=== PATIENT | female | born 1995 | race Caucasian/White ===

== ENCOUNTER 2018-05-25 07:15 | Inpatient (IN) | payer OTHER ==
[2018-05-25 08:50] VITALS: BMI 30.6
[2018-05-25 09:09] LABS: BASO % 0.4 % (0-2.0); EOS % 2.8 % (0-4.5); HEMOGLOBIN 13.5 GM/dL (10.7-15.3); LYMPH % 24.1 % (8-40); MCH 32.3 pg (25.7-33.7); MCHC 33.8 g/dl (32.0-36.0); MEAN CELL VOLUME 95.6 fl (80-96); MEAN PLT VOLUME 8.1 fl (7.5-11.1); NEUT % 66.7 % (42.8-82.8); PLATELET COUNT 266 K/MM3 (134-434); RBC 4.18 M/mm3 (3.60-5.2); RDW 13.8 % (11.6-15.6); WHITE BLOOD COUNT 9.9 K/mm3 (4.0-10.0)
[2018-05-25 09:29] LABS: INR 0.85 (0.83-1.09)
[2018-05-25 09:32] LABS: ACTIVATED PTT 30.7 SECONDS (25.2-36.5)
[2018-05-25 09:39] LABS: ANION GAP 4 MMOL/L (8-16); BLOOD UREA NITROGEN 9 mg/dL (7-18); CALCIUM 9.1 mg/dL (8.5-10.1); CHLORIDE 107 mmol/L (98-107); CO2 24 mmol/L (21-32); CREATININE 0.5 mg/dL (0.55-1.3); GLUCOSE,RANDOM 73 mg/dL (74-106); POTASSIUM 3.9 mmol/L (3.5-5.1); SODIUM 135 mmol/L (136-145)
[2018-05-25] MEDS ORDERED: AMPICILLIN - 2 GM in SODIUM CHLORIDE 100 ML IVPB ONE (10:00)
[2018-05-25] MEDS ORDERED: AMPICILLIN SODIUM 2 GM VIAL ONE (10:00)
[2018-05-25] MEDS: DEXTROSE 5%-LACTATED RINGERS 1,000 ML IV SCH ×2 (12:00→18:30)
[2018-05-25] MEDS ORDERED: BUTORPHANOL TARTRATE 1 MG/ML VIAL IVPUSH PRN (12:13)
[2018-05-25] MEDS ORDERED: PROMETHAZINE HCL 25 MG/1 ML VIAL IVPB ONE (12:13)
--- NOTE | 2018-05-25 12:22 | HP ---
Past Medical History - Primary Care Physician PCP:: Bryan Morgan - Admission Chief Complaint: 38.6 weeks. PROM History of Present Illness: 22 yo f edc by sono 06/02/18 ,c/o leakage of fluid since 330 am today, clear , has irregular contraction, cx 1 cm 70 vx =3 mr, nitrazine positive, fhr cat 1, irregular contraction, pain scale 3 History Source: Patient Limitations to Obtaining History: No Limitations - Past Medical History ...: 2 ...Para: 0 ...Term: 0 ...: 0 ...Spon : 0 ...Induced : 1 ...Multiple Gestation: 0 ...LMP: 08/26/17 ... Weeks Gestation by Dates: 38.6 ...EDC by Dates: 06/02/18 ...EDC by Sono: 06/02/18 Infectious Disease: Yes: Other (positve GBS in urine) - Past Surgical History Hx Myomectomy: No Hx Transabdominal Cerclage: No - Smoking History Smoking history: Never smoked Have you smoked in the past 12 months: No - Alcohol/Substance Use Hx Alcohol Use: No - Social History History of Recent Travel: No Home Medications - Allergies Allergies/Adverse Reactions: Allergies Allergy/AdvReac Type Severity Reaction Status Date / Time latex Allergy Severe Rash Verified 05/25/18 08:22 lubricant Allergy Severe Rash Uncoded 05/25/18 08:23 - Home Medications Home Medications: Ambulatory Orders Ferrous Sulfate [Feosol] 325 mg PO BID 05/25/18 Vits96/Iron Fum/Folic [ Tablet] 1 each PO DAILY 05/25/18 Review of Systems - Review of Systems Constitutional: reports: No Symptoms Eyes: reports: No Symptoms HENT: reports: No Symptoms Neck: reports: No Symptoms Cardiovascular: reports: No Symptoms Respiratory: reports: No Symptoms Gastrointestinal: reports: No Symptoms Genitourinary: reports: No Symptoms Breasts: reports: No Symptoms Reported Musculoskeletal: reports: No Symptoms Integumentary: reports: No Symptoms Neurological: reports: No Symptoms Endocrine: reports: No Symptoms Hematology/Lymphatic: reports: No Symptoms Psychiatric: reports: No Symptoms Physical Exam - Maternity Vital Signs: Vital Signs Temperature 98.1 F 05/25/18 11:00 Pulse Rate 76 05/25/18 11:00 Respiratory Rate 20 05/25/18 11:00 Blood Pressure 119/70 05/25/18 11:00 O2 Sat by Pulse Oximetry (%) Constitutional: Yes: Well Nourished, No Distress, Calm Eyes: Yes: WNL, Conjunctiva Clear, EOM Intact HENT: Yes: WNL, Atraumatic, Normocephalic Neck: Yes: WNL, Supple, Trachea Midline Cardiovascular: Yes: WNL, Regular Rate and Rhythm Breast(s): Yes: WNL - Abdominal Exam/OB Fundal Height: 38 Number of Fetuses: Single Presentation: Vertex Contractions: Yes Regularity: Irregular Intensity: Mild/Mod Monitor Mode: External Heart Rate Location: [facility] Category: I Accelerations: Uniform Decelerations: None - Vaginal Exam/OB Vaginal Bleediing: No Speculum Exam: Yes Dilatation (cm): 1 cm Effacement (%): 70 Amniotic Membrane Status: Ruptured Nitrazine Test: Positive Amniotic Fluid: Yes: Clear Presentation: Vertex/Position Station: -3 - Physical Exam Musculoskeletal: Yes: WNL Extremities: Yes: WNL Edema: LLE: Trace, RLE: Trace Deep Tendon Reflex Grade: Normal +2 Psychiatric: Yes: WNL - Labs Lab Results: CBC, BMP 05/25/18 08:40 05/25/18 08:40 Hemorrhage Risk Assessment - Risk Factors Medium Risk Factors: Yes: None High Risk Factors: Yes: None Risk Score: 1 Risk Level: Medium Risk Problem List - Problems (1) with 38 completed weeks gestation Code(s): Z3A.38 - 38 WEEKS GESTATION OF (2) membrane rupture Code(s): CXP0763 - (3) GBS (group B Streptococcus carrier), +RV culture, currently Code(s): O99.820 - STREPTOCOCCUS B CARRIER STATE COMPLICATING Assessment/Plan admit FHM expectant management vs induction discussed , advised observation period ,if contraction not regular will start pitocin, risks discussed GBS positive , iv amp pain management prn
[2018-05-25] MEDS: AMPICILLIN - 1 GM in SODIUM CHLORIDE 100 ML IVPB SCH ×3 (14:00→22:00)
[2018-05-25] MEDS ORDERED: AMPICILLIN SODIUM 1 GM VIAL ONE ×3 (14:01→20:48)
[2018-05-25] MEDS ORDERED: OXYTOCIN 30 UNITS in 0.9% NS 30 UNIT/500 ML INFUS.BAG IVPB ONE (18:43)
--- NOTE | 2018-05-25 18:43 | PN ---
Progress Note (short form) - Note Progress Note: cx 1 cm 80 vx -3 mr, fhr cat 1, irregular contraction afebrile advised pitocin stimulation FHM Problem List - Problems (1) with 38 completed weeks gestation Code(s): Z3A.38 - 38 WEEKS GESTATION OF (2) membrane rupture Code(s): [id number] - (3) GBS (group B Streptococcus carrier), +RV culture, currently Code(s): O99.820 - STREPTOCOCCUS B CARRIER STATE COMPLICATING
[2018-05-25] MEDS ORDERED: OXYTOCIN 30 UNITS in 0.9% NS 30 UNIT/500 ML INFUS.BAG IVPB SCH (18:45)
[2018-05-26] MEDS ORDERED: BUTORPHANOL TARTRATE 1 MG/ML VIAL ONE ×2 (01:33)
[2018-05-26] MEDS ORDERED: PROMETHAZINE HCL 25 MG/1 ML VIAL ONE (01:33)
[2018-05-26] MEDS: AMPICILLIN - 1 GM in SODIUM CHLORIDE 100 ML IVPB SCH ×2 (02:00→06:00)
[2018-05-26] MEDS ORDERED: AMPICILLIN SODIUM 1 GM VIAL ONE ×2 (02:21→06:25)
[2018-05-26] MEDS ORDERED: OXYTOCIN 20 UNITS in 0.9% NS 20 UNIT/1,000 ML INFUS.BAG IV ONE (04:19)
--- NOTE | 2018-05-26 05:13 | PN ---
Progress Note (short form) - Note Progress Note: cx 9 cm 100 vx 0 , fhr cat 1, wants to push Problem List - Problems (1) with 38 completed weeks gestation Code(s): Z3A.38 - 38 WEEKS GESTATION OF (2) membrane rupture Code(s): [id number] - (3) GBS (group B Streptococcus carrier), +RV culture, currently Code(s): O99.820 - STREPTOCOCCUS B CARRIER STATE COMPLICATING
[2018-05-26] MEDS: DEXTROSE 5%-LACTATED RINGERS 1,000 ML IV SCH (05:30)
--- NOTE | 2018-05-26 06:02 | PN ---
Progress Note (short form) - Note Progress Note: pushing with contraction, cx full . 100 vx 1+, mild early decel with pushing , good BTB Problem List - Problems (1) with 38 completed weeks gestation Code(s): Z3A.38 - 38 WEEKS GESTATION OF (2) membrane rupture Code(s): [id number] - (3) GBS (group B Streptococcus carrier), +RV culture, currently Code(s): O99.820 - STREPTOCOCCUS B CARRIER STATE COMPLICATING
[2018-05-26] MEDS ORDERED: LIDOCAINE HCL 1% PRESERVATIVE FREE - 30ML VIAL ONE (07:17)
[2018-05-26] MEDS: OXYTOCIN 20 UNITS in 0.9% NS 20 UNIT/1,000 ML INFUS.BAG IV SCH (07:30)
[2018-05-26] MEDS ORDERED: BENZOCAINE 20% 57 GM BOTTLE TP PRN (07:34)
[2018-05-26] MEDS ORDERED: METHYLERGONOVINE MALEATE 0.2 MG/1 ML AMP IM PRN (07:34)
[2018-05-26] MEDS ORDERED: BENZOCAINE 28 GM HEMORRHOIDAL OINTMENT TP PRN (07:34)
[2018-05-26] MEDS ORDERED: IBUPROFEN 600 MG TABLET (FP) PO PRN (07:34)
[2018-05-26] MEDS ORDERED: WITCH HAZEL 50% (TUCKS) 40 PAD/JAR PAD TP PRN (07:34)
[2018-05-26] MEDS ORDERED: ACETAMINOPHEN 325 MG TABLET (FP) PO PRN (07:34)
[2018-05-26] MEDS ORDERED: BISACODYL 10 MG SUPP.RECT RC PRN (07:34)
[2018-05-26] MEDS ORDERED: D5W-LR W/ 20 UNITS OXYTOCIN 20 UNIT/1,000 ML INFUS.BAG IV SCH (07:45)
[2018-05-26 08:43] LABS: ARTERIAL BLD GAS O2 SATURATION 44.4 % (95-98); ARTERIAL BLOOD GAS BASE EXCESS -7.1 meq/l (-2-2); ARTERIAL BLOOD GAS PCO2 49.3 mmHg (35-45); ARTERIAL BLOOD GAS pH 7.24 (7.35-7.45)
[2018-05-26 08:47] LABS: VENOUS PC02 46.6 mmHg (41-51); VENOUS PH 7.3 (7.31-7.41); VENOUS PO2 20.7 mmHg (30-40)
[2018-05-26 08:51] LABS: ARTERIAL BLOOD GAS PO2 23.7 mmHg (80-105)
[2018-05-26] MEDS: PRENATAL VITAMINS W/ FOLIC ACID TABLET (FP) PO SCH (09:21)
[2018-05-26] MEDS: FERROUS SO4 325 MG TABLET (FP) PO SCH ×2 (09:21→21:58)
[2018-05-27 07:20] LABS: BASO % 0.4 % (0-2.0); HEMATOCRIT 33.6 % (32.4-45.2); HEMOGLOBIN 11.1 GM/dL (10.7-15.3); LYMPH % 24.6 % (8-40); MCH 31.9 pg (25.7-33.7); MCHC 33.1 g/dl (32.0-36.0); MEAN CELL VOLUME 96.3 fl (80-96); MEAN PLT VOLUME 8.2 fl (7.5-11.1); MONO % 6.8 % (3.8-10.2); NEUT % 66.2 % (42.8-82.8); PLATELET COUNT 224 K/MM3 (134-434); RBC 3.49 M/mm3 (3.60-5.2); RDW 14.3 % (11.6-15.6); WHITE BLOOD COUNT 13.7 K/mm3 (4.0-10.0)
--- NOTE | 2018-05-27 08:33 | PN ---
Post Progress Note Post Day: 1 Type of Delivery: Vital Signs: Vital Signs Temperature 98.2 F 05/27/18 06:00 Pulse Rate 92 H 05/27/18 06:00 Respiratory Rate 18 05/27/18 06:00 Blood Pressure 117/67 05/27/18 06:00 O2 Sat by Pulse Oximetry (%) 97 05/26/18 21:00 Breast Exam: Yes: Soft Uterus: Yes: Fundus @ umbilicus Incision: Yes: Dressing dry and intact, Other Lochia: Yes: Rubra Lochia, amount: Small Extremities: Yes: Calves non-tender Perineum: Yes: Intact Activity: Ambulating - Labs Labs: CBC WBC 13.7 K/mm3 (4.0-10.0) H 05/27/18 06:30 RBC 3.49 M/mm3 (3.60-5.2) L 05/27/18 06:30 Hgb 11.1 GM/dL (10.7-15.3) 05/27/18 06:30 Hct 33.6 % (32.4-45.2) D 05/27/18 06:30 MCV 96.3 fl (80-96) H 05/27/18 06:30 MCH 31.9 pg (25.7-33.7) 05/27/18 06:30 MCHC 33.1 g/dl (32.0-36.0) 05/27/18 06:30 RDW 14.3 % (11.6-15.6) 05/27/18 06:30 Plt Count 224 K/MM3 (134-434) 05/27/18 06:30 MPV 8.2 fl (7.5-11.1) 05/27/18 06:30 Absolute Neuts (auto) 9.1 K/mm3 (1.5-8.0) H 05/27/18 06:30 Neutrophils % 66.2 % (42.8-82.8) 05/27/18 06:30 Lymphocytes % 24.6 % (8-40) 05/27/18 06:30 Monocytes % 6.8 % (3.8-10.2) 05/27/18 06:30 Eosinophils % 2.0 % (0-4.5) 05/27/18 06:30 Basophils % 0.4 % (0-2.0) 05/27/18 06:30 Nucleated RBC % 0 % (0-0) 05/27/18 06:30 Assessment/Plan 22yo s/p , PPD#1 Routine PP care, OOB, ambulate Labs pending OOB, ambulate D/C to home by PPD#2 Juan Pablo Flor MD
[2018-05-27] MEDS: FERROUS SO4 325 MG TABLET (FP) PO SCH ×2 (09:56→22:36)
[2018-05-27] MEDS: PRENATAL VITAMINS W/ FOLIC ACID TABLET (FP) PO SCH (09:56)
[2018-05-27] MEDS: DEXTROSE 5%-LACTATED RINGERS 1,000 ML IV SCH (21:17)
[2018-05-27] MEDS: OXYTOCIN 20 UNITS in 0.9% NS 20 UNIT/1,000 ML INFUS.BAG IV SCH (21:18)
[2018-05-27] MEDS ORDERED: SENNOSIDES/DOCUSATE COMBO (SENNA PLUS) TABLET (UD) PO PRN (22:00)
--- NOTE | 2018-05-28 07:26 | DS ---
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: Vital Signs Temperature 97.9 F 05/27/18 21:46 Pulse Rate 83 05/27/18 21:46 Respiratory Rate 19 05/27/18 21:46 Blood Pressure 123/76 05/27/18 21:46 O2 Sat by Pulse Oximetry (%) 98 05/27/18 21:46 Constitutional: Yes: Well Nourished, No Distress, Calm Eyes: Yes: WNL, Conjunctiva Clear, EOM Intact HENT: Yes: WNL, Atraumatic, Normocephalic Neck: Yes: WNL, Supple, Trachea Midline Cardiovascular: Yes: WNL, Regular Rate and Rhythm Respiratory: Yes: WNL, Regular, CTA Bilaterally Gastrointestinal: Yes: WNL ...Rectal Exam: Yes: WNL Renal/: Yes: WNL Pelvis: Yes: WNL External Genitalia: Yes: Normal ....Post : Yes: Uterus firm, Uterus non-tender, Slight lochia rubra Breast(s): Yes: WNL Musculoskeletal: Yes: WNL Extremities: Yes: WNL Edema: No Integumentary: Yes: WNL Neurological: Yes: WNL, Alert, Oriented ...Motor Strength: WNL Psychiatric: Yes: WNL, Alert, Oriented Labs: CBC, BMP 05/27/18 06:30 05/25/18 08:40 Delivery - Delivery Vaginal Delivery: Spontaneous (no complication) Type of Anesthesia: Local Episiotomy/Laceration: None EBL (cc): 350 Delivery, Single - Stages of Labor Date 1st Stage Initiatied: 05/26/18 Time 1st Stage Initiated: 00:00 Date 2nd Stage Initiated: 05/26/18 Time 2nd Stage Initiated: 05:00 Date of Delivery: 05/26/18 Time of Delivery: 07:24 Time Placenta Delivered: 07:25 Placenta: Yes: Spontaneous - Condition of Infant Social Staff Worker/Modeling Agency Manager Present: No Infant Gender: Male Weight: 6 lb 4 oz Total Hours ROM (Hrs/Mins): 3/40 - 1 Minute Total Score: 9 5 Minutes Total Score: 9 - Feeding Plan Initial Plan: Elected not to breastfeed exclusively throughout hospitalization Discharge Summary Reason For Visit: LABOR Current Active Problems membrane rupture (Acute) GBS (group B Streptococcus carrier), +RV culture, currently (Acute) with 38 completed weeks gestation (Acute) Procedures: Principal: Hospital Course: no complication Condition: Good - Instructions Diet, Activity, Other Instructions: regular diet, follow up [facility] care 4 weeks if fever, pain, heavy vaginal bleeding call md Referrals: Bryan Morgan MD [Staff Physician] - Disposition: HOME - Home Medications Comprehensive Discharge Medication List: Ambulatory Orders Ferrous Sulfate [Feosol] 325 mg PO BID 05/25/18 Vits96/Iron Fum/Folic [ Tablet] 1 each PO DAILY 05/25/18 Ibuprofen [Motrin -] 600 mg PO QID #28 tablet 05/27/18
[2018-05-28] MEDS: FERROUS SO4 325 MG TABLET (FP) PO SCH (11:18)
[2018-05-28] MEDS: PRENATAL VITAMINS W/ FOLIC ACID TABLET (FP) PO SCH (11:19)
[2018-05-28 13:31] VITALS: BP 124/72; PULSE 57; TEMP 98.1
== END 2018-05-28 18:10 | disposition home or self-care (01) | DRG 560 ==
LOC: JLDR 07:15 → UNDOADMIN 07:37 → J3W 05-26 08:50
PROVIDERS: ADMIT Obstetrics & Gynecology; ATTEND Obstetrics & Gynecology
PROC: 10E0XZZ Delivery of Products of Conception, External Approach (ICD-10-PCS; principal; 2018-05-25)
PROC: 3E033VJ Introduction of Other Hormone into Peripheral Vein, Percutaneous Approach (ICD-10-PCS; 2018-05-25)
DX: O99.824 Streptococcus B carrier state complicating childbirth (principal); O62.8 Other abnormalities of forces of labor; Z3A.38 38 weeks gestation of pregnancy; Z37.0 Single live birth
CPT/HCPCS: 36415; 36600; 59409; 80048; 82803; 85025; 85610; 85730; 86593; 86850; 86900; 86901

== ENCOUNTER 2020-09-11 02:17 | Inpatient (IN) | payer OTHER ==
[2020-09-11] MEDS ORDERED: DEXTROSE 5%-LACTATED RINGERS 1,000 ML IV SCH (02:30)
[2020-09-11 03:18] LABS: BASO % 0.6 % (0-2.0); EOS % 0.6 % (0-4.5); HEMATOCRIT 33.7 % (32.4-45.2); HEMOGLOBIN 11.7 GM/dL (10.7-15.3); LYMPH % 18.2 % (8-40); MCH 32.8 pg (25.7-33.7); MCHC 34.7 g/dl (32.0-36.0); MEAN CELL VOLUME 94.5 fl (80-96); MEAN PLT VOLUME 8.4 fl (7.5-11.1); MONO % 5.7 % (3.8-10.2); NEUT % 74.9 % (42.8-82.8); PLATELET COUNT 217 10^3/uL (134-434); RBC 3.57 M/mm3 (3.60-5.2); RDW 13.9 % (11.6-15.6); WHITE BLOOD COUNT 9.1 K/mm3 (4.0-10.0)
[2020-09-11 03:29] LABS: INR 0.86 (0.83-1.09); PROTHROMBIN TIME (PATIENT) 10.5 SEC (9.7-13.0)
[2020-09-11 03:32] LABS: ACTIVATED PTT 26.2 SECONDS (25.2-36.5)
[2020-09-11 03:33] LABS: CALCIUM 8.1 mg/dL (8.5-10.1)
[2020-09-11 03:35] LABS: BLOOD UREA NITROGEN 12.6 mg/dL (7-18)
[2020-09-11 03:38] LABS: CREATININE 0.7 mg/dL (0.55-1.3)
[2020-09-11 04:07] VITALS: BMI 29.2
[2020-09-11] MEDS ORDERED: OXYTOCIN 30 UNITS in 0.9% NS 30 UNIT/500 ML INFUS.BAG IVPB ONE (06:18)
[2020-09-11] MEDS ORDERED: OXYTOCIN 30 UNITS in 0.9% NS 30 UNIT/500 ML INFUS.BAG IVPB SCH (06:30)
[2020-09-11] MEDS ORDERED: ELECTROLYTE-148 SOLN 1,000 ML IV SCH ×2 (06:30→10:45)
[2020-09-11 08:09] LABS: POC NITRAZINE POS
[2020-09-11] MEDS ORDERED: PCA PUMP NR ONE (08:48)
[2020-09-11] MEDS ORDERED: FENTANYL/BUPIVACAINE/NS/PF - PCEA - 50 ML DISP.SYRIN EP ONE (08:48)
[2020-09-11] MEDS: FENTANYL/BUPIVACAINE/NS/PF - PCEA - 50 ML DISP.SYRIN EP SCH (09:30)
[2020-09-11] MEDS ORDERED: NALOXONE HCL 0.4 MG/ML VIAL IVPUSH PRN (10:28)
[2020-09-11] MEDS ORDERED: OXYTOCIN 20 UNITS in 0.9% NS 20 UNIT/1,000 ML INFUS.BAG IV ONE (11:59)
[2020-09-11] MEDS ORDERED: LIDOCAINE HCL 1% PRESERVATIVE FREE - 30ML VIAL ONE (11:59)
[2020-09-11] MEDS ORDERED: WITCH HAZEL 50% (TUCKS) 40 PAD/JAR PAD TP PRN (12:27)
[2020-09-11] MEDS ORDERED: BENZOCAINE 28 GM HEMORRHOIDAL OINTMENT TP PRN (12:27)
[2020-09-11] MEDS ORDERED: IBUPROFEN 600 MG TABLET (FP) PO PRN (12:27)
[2020-09-11] MEDS ORDERED: ACETAMINOPHEN 325 MG TABLET (FP) PO PRN (12:27)
[2020-09-11] MEDS ORDERED: BENZOCAINE 20% 57 GM BOTTLE TP PRN (12:27)
[2020-09-11] MEDS ORDERED: METHYLERGONOVINE MALEATE 0.2 MG/1 ML AMP IM PRN (12:27)
[2020-09-11] MEDS ORDERED: BISACODYL 10 MG SUPP.RECT RC PRN (12:27)
[2020-09-11] MEDS ORDERED: OXYTOCIN 20 UNITS in 0.9% NS 20 UNIT/1,000 ML INFUS.BAG IV SCH (12:30)
[2020-09-11] MEDS ORDERED: ACETAMINOPHEN 325 MG TABLET (FP) ONE (13:43)
[2020-09-11] MEDS ORDERED: IBUPROFEN 600 MG TABLET (FP) PO ONE (13:43)
[2020-09-11] MEDS: FERROUS SO4 325 MG TABLET (FP) PO SCH (18:07)
[2020-09-12] MEDS: PRENATAL VITAMINS W/ FOLIC ACID TABLET (FP) PO SCH (09:26)
[2020-09-12] MEDS: FERROUS SO4 325 MG TABLET (FP) PO SCH ×2 (09:27→18:34)
[2020-09-12 10:02] LABS: BASO % 0.6 % (0-2.0); EOS % 1.6 % (0-4.5); HEMATOCRIT 34.2 % (32.4-45.2); HEMOGLOBIN 11.6 GM/dL (10.7-15.3); LYMPH % 25.5 % (8-40); MCH 32.5 pg (25.7-33.7); MCHC 33.8 g/dl (32.0-36.0); MEAN CELL VOLUME 96.3 fl (80-96); MEAN PLT VOLUME 8.5 fl (7.5-11.1); MONO % 5.2 % (3.8-10.2); NEUT % 67.1 % (42.8-82.8); PLATELET COUNT 194 10^3/uL (134-434); RBC 3.55 M/mm3 (3.60-5.2); RDW 13.8 % (11.6-15.6); WHITE BLOOD COUNT 9.9 K/mm3 (4.0-10.0)
[2020-09-12] MEDS: FENTANYL/BUPIVACAINE/NS/PF - PCEA - 50 ML DISP.SYRIN EP SCH (10:30)
[2020-09-12] MEDS ORDERED: SENNOSIDES/DOCUSATE COMBO (SENNA PLUS) TABLET (UD) PO PRN (22:00)
[2020-09-13] MEDS: FERROUS SO4 325 MG TABLET (FP) PO SCH (09:51)
[2020-09-13] MEDS: PRENATAL VITAMINS W/ FOLIC ACID TABLET (FP) PO SCH (09:51)
[2020-09-13 11:28] VITALS: BP 123/79; PULSE 82; TEMP 97.7
== END 2020-09-13 14:00 | disposition home or self-care (01) | DRG 560 ==
LOC: JLDR 02:17 → J3W 14:20
PROVIDERS: ADMIT Obstetrics & Gynecology; ATTEND Obstetrics & Gynecology
PROC: 10E0XZZ Delivery of Products of Conception, External Approach (ICD-10-PCS; principal; 2020-09-11)
DX: O42.02 Full-term premature rupture of membranes, onset of labor within 24 hours of rupture (principal); Z3A.38 38 weeks gestation of pregnancy; Z37.0 Single live birth
CPT/HCPCS: 36415; 59025; 59409; 80048; 83986-QW; 85025; 85610; 85730; 86780; 86850; 86900; 86901; C9803; U0003; U0005